=== PATIENT | male | born 1950 | race Caucasian/White ===

== ENCOUNTER 2019-02-01 18:02 | Emergency (ER) | payer MEDICARE, OTHER ==
--- NOTE | 2019-02-01 18:15 | ED.PDOC ---
History of Present Illness - General Chief Complaint: Skin/Abrasion/Tear Stated Complaint: skin abrasion left leg Time Seen by Provider: 02/01/19 18:12 Source: patient Exam Limitations: no limitations - History of Present Illness Initial Comments: Angel Hancock 68 y/o male stated that his left leg acciden grazed a big brick while walking 8 days ago and had abrasion on his left leg which he cleaned it with soap and water but the last 2 days noted redness and swelling around the wound.His Tetanus Immunizarion UTD. Timing/Duration: other - 8 DAYS AGO Severity: moderate Location: extremities - left leg Improving Factors: nothing Worsening Factors: movement Associated Symptoms: other - see hpi Allergies/Adverse Reactions: Allergies NO KNOWN ALLERGY Allergy (Verified 02/01/19 18:24) Home Medications: Ambulatory Orders Clindamycin HCl [Clindamycin Hydrochloride] 300 mg PO TID 7 Days #21 cap 02/01/19 Mupirocin 2 % Oint [Bactroban Oint] 22 gm TOP BID 7 Days #1 tube 02/01/19 Review of Systems - Review of Systems Skin: States: see HPI Past Medical History (General) - Patient Medical History Hx Diabetes: Yes - Vaccination History Immunizations Up to Date: Yes - 3 years ago Family Medical History - Family History Father Family History: No Known Mother Family History: Unknown Living Status: Unknown Physical Exam - Physical Exam General Appearance: Alert, Comfortable, No apparent distress Eyes, Ears, Nose, Throat Exam: normal ENT inspection Neck: supple, normal inspection Cardiovascular/Chest: normal peripheral pulses, regular rate, rhythm Respiratory: lungs clear, normal breath sounds Gastrointestinal/Abdominal: soft, no organomegaly Extremity: no pedal edema, no calf tenderness Neurologic: alert, oriented x 3 Skin Exam: warm/dry, normal color Skin Problem Location: lower extremities - left leg Skin Character: erythema, other - abrasion Lymphatic: no adenopathy Progress - Progress Progress: 02/01/19 18:28 Vital Signs - 8 hr 02/01/19 18:10 Temperature 96.6 F L Pulse Rate [R 89 finger] Respiratory 18 Rate Blood Pressure 155/92 [R arm] O2 Sat by Pulse 96 Oximetry - Results/Orders Results/Orders: Laboratory Tests 02/01/19 02/01/19 02/01/19 18:25 18:25 18:25 WBC 6.1 RBC 4.22 L Hgb 14.4 Hct 42.3 MCV 100.3 H MCH 34.3 H MCHC 34.2 RDW 13.2 Plt Count 151 MPV 9.5 Absolute Neuts (auto) 4.40 Absolute Lymphs (auto) 1.10 Absolute Monos (auto) 0.50 Absolute Eos (auto) 0.10 Absolute Basos (auto) 0.00 Neutrophils % 71.6 Lymphocytes % 18.0 L Monocytes % 8.1 Eosinophils % 1.7 Basophils % 0.6 Sodium 136 Potassium 3.9 Chloride 102 Carbon Dioxide 20 L Anion Gap 17.9 BUN 11 Creatinine 1.06 BUN/Creatinine Ratio 10.4 Random Glucose 359 H Serum Osmolality 285.8 Lactic Acid 1.9 Calcium 9.1 Discuss all test resultswith patient Departure - Departure Clinical Impression: Infected abrasion of right leg Qualifiers: Encounter type: initial encounter Qualified Code(s): S80.811A - Abrasion, right lower leg, initial encounter; L08.9 - Local infection of the skin and subcutaneous tissue, unspecified Time of Disposition: 19:37 Disposition: Discharge to Home or Self Care Condition: Fair Departure Forms: ED Discharge - Pt. Copy, Patient Portal Self Enrollment Instructions: DI for Abrasion Prescriptions: Clindamycin HCl [Clindamycin Hydrochloride] 300 mg PO TID 7 Days #21 cap Mupirocin 2 % Oint [Bactroban Oint] 22 gm TOP BID 7 Days #1 tube Home Medications: Ambulatory Orders Clindamycin HCl [Clindamycin Hydrochloride] 300 mg PO TID 7 Days #21 cap 06/12 Mupirocin 2 % Oint [Bactroban Oint] 22 gm TOP BID 7 Days #1 tube 02/01/19 Additional Instructions: Return to Emergency room as needed;Follow up with primary Md 05 February 2019 for recheck as needed
[2019-02-01 18:25] VITALS: TEMP 96.6
[2019-02-01] MEDS ORDERED: CLINDAMYCIN IV 900MG 900 MG in PREMIX BAG 1 BAG IVPB ONE (18:55)
[2019-02-01] MEDS ORDERED: CLINDAMYCIN PHOSPHATE 150 MG/ML VIAL IM ONE (18:59)
[2019-02-01] MEDS ORDERED: CLINDAMYCIN HCL CAP (ER DISP) 150 MG CAP PO ONE (18:59)
[2019-02-01 19:53] VITALS: BP 149/91; O2SAT 94
== END 2019-02-01 19:52 | disposition home or self-care (01) ==
LOC: ER 18:02
DX: S80.812A Abrasion, left lower leg, initial encounter (principal); L08.9 Local infection of the skin and subcutaneous tissue, unspecified; E11.9 Type 2 diabetes mellitus without complications; W22.09XA Striking against other stationary object, initial encounter; Y93.01 Activity, walking, marching and hiking; Y92.9 Unspecified place or not applicable
CPT/HCPCS: 36415; 80048; 83605; 85025; J3490

== ENCOUNTER 2019-05-11 21:39 | Emergency (ER) | payer MEDICARE, OTHER ==
[2019-05-11] MEDS ORDERED: INSULIN LISPRO 100 UNITS/ML PEN SUBCU ONE (22:14)
[2019-05-11] MEDS ORDERED: INSULIN DETEMIR 100 UNITS/ML PEN SUBCU ONE (22:14)
--- NOTE | 2019-05-11 22:21 | ED.PDOC ---
History of Present Illness - General Chief Complaint: Diabetic Complaint Stated Complaint: elevated blood sugar Time Seen by Provider: 05/11/19 21:39 Source: patient Exam Limitations: no limitations - History of Present Illness Initial Comments: The patient is a 68-year-old male presenting to the emergency room with his family secondary to consistently elevated blood sugars throughout the day. He is actually feeling okay. This was his first day home from the hospital. He had been in the hospital for more than a month due to a stroke. His blood sugars have been labile in the hospital as well. He is now on a new form of insulin in the form of Levemir and NovoLog. He is written to take 16 units of Levemir in the morning and 7 units of NovoLog before each meal. Family has been doing that but his blood sugars have continued to escalate with the last being just at 400 around supper tonight. The patient is asymptomatic. He is pleasant and cooperative. They do have an appointment with her mold changer next week. He did have a insulin pump prior. Timing/Duration: 24 hours Severity: mild Improving Factors: nothing Worsening Factors: nothing Associated Symptoms: denies symptoms Allergies/Adverse Reactions: Allergies NO KNOWN ALLERGY Allergy (Verified 02/01/19 18:24) Review of Systems - Review of Systems Constitutional: States: no symptoms reported EENTM: States: no symptoms reported Respiratory: States: no symptoms reported Cardiology: States: no symptoms reported Gastrointestinal/Abdominal: States: no symptoms reported Genitourinary: States: no symptoms reported Musculoskeletal: States: no symptoms reported Skin: States: no symptoms reported Neurological: States: see HPI - hronic changes from his strokes Endocrine: States: no symptoms reported All other Systems: No Change from Baseline Past Medical History (General) - Patient Medical History Hx Stroke: No Hx of COPD: No Hx Cardiac Disorders: No Hx Hypertension: Yes Hx Diabetes: Yes Hx Gastroesophageal Reflux: Yes Hx Cancer: No - Vaccination History Hx Tetanus, Diphtheria Vaccination: Yes Hx Influenza Vaccination: No Hx Pneumococcal Vaccination: No - Social History Hx Tobacco Use: Yes - Dips Hx Chewing Tobacco Use: Yes Hx Alcohol Use: Yes Hx Substance Use: No Hx Substance Use Treatment: No Hx Depression: No - Female History Patient : No Family Medical History - Family History Mother Family History: Unknown Living Status: Unknown Father Family History: No Known Physical Exam - Physical Exam General Appearance: Alert, Comfortable, No apparent distress Eye Exam: bilateral normal Ears, Nose, Throat: hearing grossly normal Respiratory: no respiratory distress, no accessory muscle use Cardiovascular/Chest: no edema, other - egular rate Rectal Exam: deferred Extremity: no pedal edema, normal capillary refill Neurologic: equine intern II-XII nml as tested, alert, normal mood/affect, oriented x 3, other - chronic changes related to stroke Skin Exam: normal color Progress - Progress Progress: 05/11/19 23:47 the patient is a 68-year-old male presenting to emergency room secondary to hyperglycemia that has been worsening throughout the day. It peaked here tonight around 460 but is coming back down now after extra short- acting and long-acting insulin were given. He is asymptomatic from it at this time. His Levemir needs to be increased to 24 units in the morning and his pre- meal time insulin needs to be dosed at 9 units before each meal. Additionally, at each blood sugar check, if his blood sugar is greater than 250, then he should receive an additional 3 units of short-acting insulin. he needs to be kept well hydrated. Keep follow-up with endocrinology. He does need a glucose check before bed as well. ER warnings are given for any acute worsening. carl owusu [id number] Departure - Departure Clinical Impression: Hyperglycemia Diabetes mellitus Qualifiers: Diabetes mellitus type: type 1 Diabetes mellitus complication status: with other specified complication Qualified Code(s): E10.69 - Type 1 diabetes mellitus with other specified complication Disposition: Discharge to Home or Self Care Condition: Fair Departure Forms: ED Discharge - Pt. Copy, Patient Portal Self Enrollment Instructions: DI for Diabetes Type 1 -- Adult Diet: diabetic diet Activity: increase activity as tolerated Referrals: UNKNOWN,PHYSICIAN [Primary Care Provider] - 1-2 Weeks Additional Instructions: the patient is a 68-year-old male presenting to emergency room secondary to hyperglycemia that has been worsening throughout the day. It peaked here tonight around 460 but is coming back down now after extra short- acting and long-acting insulin were given. He is asymptomatic from it at this time. His Levemir needs to be increased to 24 units in the morning and his pre- meal time insulin needs to be dosed at 9 units before each meal. Additionally, at each blood sugar check, if his blood sugar is greater than 250, then he should receive an additional 3 units of short-acting insulin. he needs to be kept well hydrated. Keep follow-up with endocrinology. He does need a glucose check before bed as well. ER warnings are given for any acute worsening.
[2019-05-11 23:05] VITALS: O2SAT 96
[2019-05-12 00:01] VITALS: BP 125/76; TEMP 97
== END 2019-05-12 00:01 | disposition home or self-care (01) ==
LOC: ER 21:39
DX: E10.65 Type 1 diabetes mellitus with hyperglycemia (principal); I10 Essential (primary) hypertension; Z87.891 Personal history of nicotine dependence; Z79.4 Long term (current) use of insulin; Z79.899 Other long term (current) drug therapy; Z86.73 Personal history of transient ischemic attack (TIA), and cerebral infarction without residual deficits
CPT/HCPCS: 82947; 82948; J1815

== ENCOUNTER → 2019-08-20 | Outpatient (CLI) | payer MEDICARE, OTHER | LOC: GMAM 17:05 | PROVIDERS: ATTEND Family Medicine | DX: Z12.5 Encounter for screening for malignant neoplasm of prostate (principal); E10.8 Type 1 diabetes mellitus with unspecified complications ==

== ENCOUNTER 2019-11-26 22:41 | Emergency (ER) | payer MEDICARE, OTHER ==
[2019-11-26 22:55] VITALS: TEMP 97.8
[2019-11-26] MEDS ORDERED: SODIUM CHLORIDE 0.9% 1000ML 1,000 ML IVS ONE (22:57)
--- NOTE | 2019-11-27 00:47 | ED.PDOC ---
History of Present Illness - General Chief Complaint: Diabetic Complaint Stated Complaint: low BS at home Time Seen by Provider: 11/26/19 22:44 Source: patient, family Exam Limitations: clinical condition - History of Present Illness Initial Comments: The patient is a 69-year-old male presented emergency room with EMS after having had an episode of hypoglycemia at home. Blood sugar got down into the mid 30s and the patient was going in and out of consciousness and was diaphoretic. EMS arrived and gave 300 cc of D10W. Glucose upon arrival was around 260. The patient is mentating well. 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 No new neurological changes. He has been feeling fine prior. Symptoms developed while he was watching TV with his . He is a long-term insulin-dependent diabetic. It is been quite sometime since he has had a hypoglycemic episode. No current chest pain or shortness of breath. No nausea vomiting or diarrhea. No fever. Timing/Duration: 1/2 hour Severity: severe Improving Factors: nothing Worsening Factors: nothing Associated Symptoms: diaphoresis, loss of appetite Allergies/Adverse Reactions: Allergies NO KNOWN ALLERGY Allergy (Verified 11/26/19 22:55) Home Medications: Ambulatory Orders Amlodipine Besylate 2.5 mg PO DAILY 11/26/19 Apixaban [Eliquis] 5 mg PO BID 11/26/19 Aspirin [Aspirin Childrens] 81 mg PO DAILY 11/26/19 Atorvastatin Calcium [Lipitor] 20 mg PO BEDTIME 11/26/19 Baclofen 5 mg PO TID 11/26/19 Brimonidine Tartrate-Timolol M [Combigan 0.2-0.5 %] 1 michelle OP DAILY 11/26/19 Citalopram Hydrobromide [Citalopram] 20 mg PO DAILY 11/26/19 Donepezil Hydrochloride [Donepezil HCl] 10 mg PO BEDTIME 11/26/19 Folic Acid 1 mg PO DAILY 11/26/19 Insulin Aspart [Novolog Flexpen] 100 unit SC 11/26/19 Insulin Degludec [Tresiba Flextouch] 11/26/19 Meloxicam 7.5 mg PO DAILY 11/26/19 Memantine HCl 5 mg PO DAILY 11/26/19 Metoprolol Succinate [Metoprolol Succinate ER] 25 mg PO DAILY 11/26/19 Multiple Vitamins W/ Minerals [Centrum] 1 tab PO DAILY 11/26/19 QUEtiapine FUMARATE [SEROquel] 100 mg PO TID 11/26/19 Review of Systems - Review of Systems Constitutional: States: malaise EENTM: States: no symptoms reported Respiratory: States: no symptoms reported Cardiology: States: no symptoms reported Gastrointestinal/Abdominal: States: nausea Genitourinary: States: no symptoms reported Musculoskeletal: States: no symptoms reported Skin: States: see HPI Neurological: States: see HPI Endocrine: States: excessive sweating All other Systems: No Change from Baseline Past Medical History (General) - Patient Medical History Hx Seizures: No Hx Stroke: No Hx Dementia: No Hx Asthma: No Hx of COPD: No Hx Cardiac Disorders: No Hx Congestive Heart Failure: No Hx Pacemaker: No Hx Hypertension: Yes Hx Thyroid Disease: No Hx Diabetes: Yes Hx Gastroesophageal Reflux: Yes Hx Renal Disease: No Hx Cancer: No Hx of HIV: No Hx Hepatitis C: No Hx MRSA: No Surgical History: tonsillectomy - Vaccination History Hx Tetanus, Diphtheria Vaccination: No Hx Influenza Vaccination: No Hx Pneumococcal Vaccination: No - Social History Hx Tobacco Use: Yes Hx Chewing Tobacco Use: Yes Hx Alcohol Use: No Hx Substance Use: No Hx Substance Use Treatment: No Hx Depression: No - Female History Patient : No Family Medical History - Family History Mother Family History: Unknown Living Status: Unknown Father Family History: No Known Physical Exam - Physical Exam General Appearance: Alert, Comfortable, No apparent distress Eye Exam: bilateral normal Ears, Nose, Throat: hearing grossly normal, normal ENT inspection Neck: full range of motion, supple Respiratory: lungs clear, normal breath sounds, no respiratory distress, no accessory muscle use Cardiovascular/Chest: normal peripheral pulses, no edema, other - Regular rate Peripheral Pulses: radial,right: 2+, radial,left: 2+ Gastrointestinal/Abdominal: non tender, soft Rectal Exam: deferred Back Exam: no CVA tenderness, no vertebral tenderness Extremity: non-tender, no pedal edema, no calf tenderness, normal capillary refill Neurologic: laminator hand II-XII nml as tested, alert, normal mood/affect, oriented x 3, other - Chronic limitations related to previous stroke Skin Exam: diaphoresis - Clothes are wet from previous diaphoretic episode Comments: Vital Signs - 24 hr 11/26/19 11/26/19 22:43 23:48 Temperature 97.8 F Pulse Rate [ 69 monitor] Respiratory 18 Rate Blood Pressure 156/106 157/88 [Left Arm] O2 Sat by Pulse 95 Oximetry Progress - Progress Progress: 11/27/19 00:48 The patient is a 69-year-old male presenting to the emergency room after an isolated hypoglycemic episode. Episode was corrected with D10W. Blood sugars have remained in the high normal range here. Patient is mentating at his baseline. No evidence of outside pathology otherwise has been found. He has received a liter of IV fluids. I do need to monitor his blood sugars closely each night around 1030 or so to make sure he is not bottoming out. Follow-up with primary care doctor before the weekend. ER warnings are given for any worsening. carl owusu [id number] - Results/Orders Results/Orders: Laboratory Tests 11/26/19 11/26/19 11/27/19 23:15 23:15 00:00 WBC 9.0 RBC 4.36 L Hgb 13.9 L Hct 40.9 L MCV 93.7 MCH 31.9 H MCHC 34.1 RDW 13.0 Plt Count 110 L MPV 10.2 Absolute Neuts (auto) 7.30 H Absolute Lymphs (auto) 1.00 Absolute Monos (auto) 0.50 Absolute Eos (auto) 0.20 Absolute Basos (auto) 0.10 Neutrophils % 81.0 H Lymphocytes % 10.7 L Monocytes % 5.6 Eosinophils % 2.1 Basophils % 0.6 Sodium 138 Potassium 3.8 Chloride 105 Carbon Dioxide 24 Anion Gap 12.8 BUN 11 Creatinine 1.05 BUN/Creatinine Ratio 10.5 POC Glucose 208 H Random Glucose 205 H Serum Osmolality 281.0 Calcium 9.0 Magnesium 1.9 Total Bilirubin 0.8 AST 32 ALT 51 Alkaline Phosphatase 136 H Creatine Kinase 77 CK-MB (CK-2) 1.9 CK-MB (CK-2) % Not Reportable Troponin I < 0.02 Serum Total Protein 6.8 Albumin 4.0 Globulin 2.8 Albumin/Globulin Ratio 1.4 EKG shows normal sinus rhythm at 62 bpm. Left axis. Normal R wave progression. No ST segment or T wave changes indicative of acute ischemia. Normal QT interval. Departure - Departure Clinical Impression: Hypoglycemia Disposition: Discharge to Home or Self Care Departure Forms: ED Discharge - Pt. Copy, Patient Portal Self Enrollment Instructions: Low Blood Sugar in People With Diabetes Diet: diabetic diet Activity: increase activity as tolerated Referrals: Law Owusu MD [Primary Care Provider] - 1-5 Days Home Medications: Ambulatory Orders Amlodipine Besylate 2.5 mg PO DAILY 11/26/19 Apixaban [Eliquis] 5 mg PO BID 11/26/19 Aspirin [Aspirin Childrens] 81 mg PO DAILY 11/26/19 Atorvastatin Calcium [Lipitor] 20 mg PO BEDTIME 11/26/19 Baclofen 5 mg PO TID 11/26/19 Brimonidine Tartrate-Timolol M [Combigan 0.2-0.5 %] 1 michelle OP DAILY 11/26/19 Citalopram Hydrobromide [Citalopram] 20 mg PO DAILY 11/26/19 Donepezil Hydrochloride [Donepezil HCl] 10 mg PO BEDTIME 11/26/19 Folic Acid 1 mg PO DAILY 11/26/19 Insulin Aspart [Novolog Flexpen] 100 unit SC 11/26/19 Insulin Degludec [Tresiba Flextouch] 11/26/19 Meloxicam 7.5 mg PO DAILY 11/26/19 Memantine HCl 5 mg PO DAILY 11/26/19 Metoprolol Succinate [Metoprolol Succinate ER] 25 mg PO DAILY 11/26/19 Multiple Vitamins W/ Minerals [Centrum] 1 tab PO DAILY 11/26/19 QUEtiapine FUMARATE [SEROquel] 100 mg PO TID 11/26/19 Additional Instructions: The patient is a 69-year-old male presenting to the emergency room after an isolated hypoglycemic episode. Episode was corrected with D10W. Blood sugars have remained in the high normal range here. Patient is mentating at his baseline. No evidence of outside pathology otherwise has been found. He has received a liter of IV fluids. I do need to monitor his blood sugars closely each night around 1030 or so to make sure he is not bottoming out. Follow-up with primary care doctor before the weekend. ER warnings are given for any worsening.
[2019-11-27 01:19] VITALS: BP 144/83; O2SAT 97
== END 2019-11-27 01:19 | disposition home or self-care (01) ==
LOC: ER 22:41
DX: E11.649 Type 2 diabetes mellitus with hypoglycemia without coma (principal); I10 Essential (primary) hypertension; F03.90 Unspecified dementia, unspecified severity, without behavioral disturbance, psychotic disturbance, mood disturbance, and anxiety; Z79.4 Long term (current) use of insulin
CPT/HCPCS: 36415; 80053; 82550; 82553; 82948; 83735; 84484; 85025; 93005; J7030

== ENCOUNTER → 2020-02-13 | Outpatient (CLI) | payer MEDICARE, OTHER | LOC: BFHH 10:52 | PROVIDERS: ATTEND Family Medicine | DX: E10.65 Type 1 diabetes mellitus with hyperglycemia (principal); E55.9 Vitamin D deficiency, unspecified; E78.49 Other hyperlipidemia; I10 Essential (primary) hypertension; E04.1 Nontoxic single thyroid nodule ==

== ENCOUNTER → 2020-02-19 | Outpatient (CLI) | payer MEDICARE, OTHER | LOC: BFHH 14:15 | PROVIDERS: ATTEND Family Medicine | DX: E10.65 Type 1 diabetes mellitus with hyperglycemia (principal); I10 Essential (primary) hypertension; E78.49 Other hyperlipidemia; E55.9 Vitamin D deficiency, unspecified ==

== ENCOUNTER → 2020-06-05 | Outpatient (CLI) | payer MEDICARE, OTHER ==
--- NOTE | 2020-06-06 08:24 | MRI ---
EXAM DESCRIPTION: Brain w/o Contrast: MRI. CLINICAL HISTORY: DEMENTIA COMPARISON: None. TECHNIQUE: Multiplanar, high-field MRI unit, multiple diffusion sequences, multiple conventional sequences without contrast. FINDINGS: Confluent bilateral hyperintense FLAIR and T2-weighted signal in the periventricular white matter abutting the frontal horns and occipital horns including the curiel radiata of the frontal parietal and occipital lobes above the level of the basal ganglia extending into the centrum semiovale. Relative sparing of the temporal lobes. Bilateral focal lesions in the subcortical white matter of the frontal and parietal lobes. No hemorrhage, no cerebral edema, no midline shift.. No diffusion restriction. Defect in the right basal ganglia, which is hyperintense on T2 and gradient echo sequences and hypointense on FLAIR and T1 sequences. Hyperintense FLAIR scar tissue surrounding. The basal ganglia is negative. No hemorrhage, no cerebral edema, no mass-effect no diffusion restriction. Increased T2 and FLAIR signal in the right superior cerebellar peduncle extending into the right tobias with loss of substance. Normal signal in the right inferior cerebral peduncle. No hemorrhage, no cerebral edema, no mass-effect. No diffusion restriction. Normal signal in the remainder of the brainstem and cerebellar hemispheres. Elsewhere in the brain, concordance of the diffusion and non-diffusion sequences with no diffusion restriction. Cortical sulci, ventricles, and other CSF spaces, and the subdural spaces are prominent, reflecting central and cortical atrophy. No effacement or displacement. No midline shift. No extra-axial hemorrhage. Normal flow signal void in the major vessels of the emmonak Henning, and the venous sinuses. IACs are symmetric bilaterally. Minimal fluid/edema in the right mastoid air cells and normal signal in the left mastoid air cells. No mass effect in the bilateral cerebellopontine angles. Pituitary gland occupies most of the sella. Base of the cerebellar tonsils is above the foramen magnum. Minimal mucosal thickening in the paranasal sinuses. The bony calvarium is intact. IMPRESSION: 1. Bilateral periventricular white matter and subcortical white matter abnormal signal most likely related to aging and or cerebral microvascular disease. No hemorrhage, no mass effect, no edema, and no diffusion restriction. 2. 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 No hemorrhage, no diffusion restriction. Old infarction and focal atrophy in the superior cerebellar peduncle extending into the tobias. No hemorrhage, no diffusion restriction. 3. Cortical and central atrophy with prominent cortical sulci small cortical gyri, and prominent ventricular system. 4. Mastoiditis on the right and paranasal chronic sinusitis. Electronically signed by: Jonathan Kumar MD 06/06/2020 8:23 AM MICA MINER
== END ==
LOC: MRI 09:50
PROVIDERS: ATTEND Family Medicine
DX: F02.80 Dementia in other diseases classified elsewhere, unspecified severity, without behavioral disturbance, psychotic disturbance, mood disturbance, and anxiety (principal); R90.82 White matter disease, unspecified; G31.9 Degenerative disease of nervous system, unspecified; H70.91 Unspecified mastoiditis, right ear; J32.9 Chronic sinusitis, unspecified; Z86.73 Personal history of transient ischemic attack (TIA), and cerebral infarction without residual deficits